=== PATIENT | male | born 1945 | race Caucasian/White ===

== ENCOUNTER 2017-07-18 07:50 | Outpatient (CLI) | payer OTHER ==
[~2017-07-18 07:50] MED LIST: HYDRALAZINE HCL10 MG; LOSARTAN-HCTZ1 EAC1; NORVASC10 MG; OMEPRAZOLE20 M1; TAMS0.4C; TOBRADEX EYE DR10 ML OP; TOPROL XL50 M1; ZITHROMAX500 MG PO
== END 2017-07-18 08:01 | disposition home or self-care (01) ==
LOC: LAB 07:50
DX: R31.9 Hematuria, unspecified (principal); N40.1 Benign prostatic hyperplasia with lower urinary tract symptoms; N30.00 Acute cystitis without hematuria

== ENCOUNTER 2017-07-27 09:32 | Outpatient (CLI) | payer OTHER | END 2017-07-27 14:40 | disposition home or self-care (01) | LOC: RAD 09:32 | DX: S93.602A Unspecified sprain of left foot, initial encounter (principal) ==

== ENCOUNTER → 2017-11-20 09:32 | Outpatient (CLI) | payer OTHER | END | disposition home or self-care (01) | LOC: LAB 09:32 | DX: I10 Essential (primary) hypertension (principal); E78.2 Mixed hyperlipidemia; E03.8 Other specified hypothyroidism ==

== ENCOUNTER 2018-02-10 16:41 | Inpatient (IN) | payer OTHER ==
[~2018-02-10] VITALS: Ht 157.5 cm; Wt 76.7 kg
[2018-02-10] MEDS ORDERED: PROSCAR5 MG (17:04)
[2018-02-10] MEDS ORDERED: ISOSORBIDE DINI30 MG (17:05)
[2018-02-10] MEDS ORDERED: CARDURA XL4 MG (17:05)
== END 2018-02-14 08:31 | disposition home or self-care (01) | DRG 292 ==
LOC: ER 16:41 → MEDJ 02-11 10:21
PROC: B246ZZZ Ultrasonography of Right and Left Heart (ICD-10-PCS; principal; 2018-02-11)
DX: I11.0 Hypertensive heart disease with heart failure (principal); I50.33 Acute on chronic diastolic (congestive) heart failure; I16.9 Hypertensive crisis, unspecified; N39.0 Urinary tract infection, site not specified; N40.0 Benign prostatic hyperplasia without lower urinary tract symptoms; I34.0 Nonrheumatic mitral (valve) insufficiency

== ENCOUNTER 2018-04-14 09:38 | Outpatient (CLI) | payer OTHER ==
[~2018-04-14 09:38] MED LIST changes: +CARDURA XL4 MG; +ISOSORBIDE DINI30 MG; +PROSCAR5 MG
== END 2018-04-14 09:44 | disposition home or self-care (01) ==
LOC: LAB 09:38
DX: C85.84 Other specified types of non-Hodgkin lymphoma, lymph nodes of axilla and upper limb (principal); C82.51 Diffuse follicle center lymphoma, lymph nodes of head, face, and neck; D51.3 Other dietary vitamin B12 deficiency anemia; N40.1 Benign prostatic hyperplasia with lower urinary tract symptoms; I20.0 Unstable angina; E55.9 Vitamin D deficiency, unspecified; E03.8 Other specified hypothyroidism; I10 Essential (primary) hypertension; E78.4 Other hyperlipidemia; I11.0 Hypertensive heart disease with heart failure; D50.8 Other iron deficiency anemias; D51.8 Other vitamin B12 deficiency anemias; K90.89 Other intestinal malabsorption; R97.0 Elevated carcinoembryonic antigen [CEA]; R97.8 Other abnormal tumor markers; K59.09 Other constipation; K29.60 Other gastritis without bleeding

== ENCOUNTER 2018-09-10 10:51 | Outpatient (CLI) | payer OTHER | END 2018-09-10 13:25 | disposition home or self-care (01) | LOC: LAB 10:51 | DX: E11.9 Type 2 diabetes mellitus without complications (principal); I10 Essential (primary) hypertension; E03.8 Other specified hypothyroidism; E78.2 Mixed hyperlipidemia; N40.0 Benign prostatic hyperplasia without lower urinary tract symptoms; M81.0 Age-related osteoporosis without current pathological fracture ==

== ENCOUNTER 2019-01-18 11:18 | Inpatient (IN) | payer OTHER ==
[~2019-01-18] VITALS: Ht 157.5 cm; Wt 76.7 kg
[2019-01-18] MEDS ORDERED: FUROSEMIDE40 MG (11:28)
== END 2019-01-24 10:44 | disposition home or self-care (01) | DRG 291 ==
LOC: ER 11:18 → SURH 01-19 08:45
PROVIDERS: ADMIT Internal Medicine Cardiovascular Disease
PROC: 4A12X4Z Monitoring of Cardiac Electrical Activity, External Approach (ICD-10-PCS; principal; 2019-01-19)
PROC: B246ZZZ Ultrasonography of Right and Left Heart (ICD-10-PCS; 2019-01-19)
PROC: BT43ZZZ Ultrasonography of Bilateral Kidneys (ICD-10-PCS; 2019-01-20)
DX: I13.0 Hypertensive heart and chronic kidney disease with heart failure and stage 1 through stage 4 chronic kidney disease, or unspecified chronic kidney disease (principal); I50.23 Acute on chronic systolic (congestive) heart failure; N17.8 Other acute kidney failure; N39.0 Urinary tract infection, site not specified; I48.0 Paroxysmal atrial fibrillation; N18.9 Chronic kidney disease, unspecified; N40.1 Benign prostatic hyperplasia with lower urinary tract symptoms; R33.8 Other retention of urine; I35.1 Nonrheumatic aortic (valve) insufficiency; I34.0 Nonrheumatic mitral (valve) insufficiency; R60.0 Localized edema

== ENCOUNTER 2019-03-04 10:46 | Emergency (ER) | payer OTHER ==
[~2019-03-04] VITALS: Ht 152.4 cm; Wt 76.2 kg
[~2019-03-04 10:46] MED LIST changes: +FUROSEMIDE40 MG
== END 2019-03-04 12:16 | disposition home or self-care (01) ==
LOC: ER 10:46
DX: N48.89 Other specified disorders of penis (principal); R06.02 Shortness of breath

== ENCOUNTER 2019-03-11 11:13 | Inpatient (IN) | payer OTHER ==
[~2019-03-11] VITALS: Ht 157.5 cm; Wt 77.1 kg
== END 2019-03-20 09:36 | disposition home or self-care (01) | DRG 690 ==
LOC: ER 11:13 → MEDJ 03-12 06:31
PROVIDERS: ADMIT Internal Medicine Cardiovascular Disease
PROC: 4A12X4Z Monitoring of Cardiac Electrical Activity, External Approach (ICD-10-PCS; principal; 2019-03-12)
PROC: 3E0F7GC Introduction of Other Therapeutic Substance into Respiratory Tract, Via Natural or Artificial Opening (ICD-10-PCS; 2019-03-12)
DX: N39.0 Urinary tract infection, site not specified (principal); L03.116 Cellulitis of left lower limb; N17.8 Other acute kidney failure; N40.1 Benign prostatic hyperplasia with lower urinary tract symptoms; I11.0 Hypertensive heart disease with heart failure; R33.8 Other retention of urine; I48.2 Chronic atrial fibrillation; I50.9 Heart failure, unspecified; B96.5 Pseudomonas (aeruginosa) (mallei) (pseudomallei) as the cause of diseases classified elsewhere; B96.1 Klebsiella pneumoniae [K. pneumoniae] as the cause of diseases classified elsewhere; N48.89 Other specified disorders of penis

== ENCOUNTER 2019-04-08 08:42 | Inpatient (IN) | payer OTHER ==
[~2019-04-08] VITALS: Ht 157.5 cm; Wt 68.0 kg
--- NOTE | 2019-04-08 09:12 | NUR ---
SE RECIBE PTE ALERTA Y ORIENTADO X3,ES REFERIDO POR EL ES REFERIDO POR EL POR TAQUICARDIA,PTE REFIERE DOLOR EN LA RUDOLPH
--- NOTE | 2019-04-08 09:32 | NUR ---
SE RECIBE MASCULINO DE 73 ANOS, EN UNIDAD DE CHEST PAIN. PACIENTE ALERTA,ORIENTADO EN EFFIE ADILENE ESFERAS,EN COMPANIA DE FAMILIAR. ES UBICADO EN GLEN #17,CONECTADO A MONITOR CARDIACO, OXIMETRIA DE PULSO CONTINUA. SE OBSERVA CON BUEN PATRON RESPIRATORIO. SE MANTIENE BAJO OBSERVACION.
--- NOTE | 2019-04-08 10:52 | NUR ---
EVALUADO POR QUIEN ORDENA TRATAMIENTO MEDICO DEL CUAL SE ORIENTA PACIENTE Y FAMILIAR,AMBOS REFIEREN COMPRENDER. SE COLECTAN MUESTRAS DE LABORATORIOS LAS CUALES SON ROTULADAS Y ENVIADAS PARA ANALISIS. SE ADMINISTRAN MEDICAMENTOS PAULINA ORDEN MEDICA SIGUIENDO MEDIDAS ASEPTICAS. PACIENTE NO PRESENTA REACCION ADVERSA. SE MANTIENE BAJO OBSERVACION POR CAMBIOS EN CONDICION.
--- NOTE | 2019-04-08 11:50 | NUR ---
PT CON HR 131 A 142LPM SE LE TITULA DRIP DE CARDIZEM 100MG/100ML BAJANDO A 10ML/HR Y SE COMEINZA 0.9NSS 1000ML BAJANDO A 80ML/HR. PT CON WHIPPLE LEGABG DE DOZIER HOGAR, BOLSA DE LEGBAG SE OBSERVA AMARILLA, ORINA SE OBSERVA COLOR AMARILLO TURBIO CON SEDIMENTACION Y PURULENCIA. SE NOTIFICA A MARCIN RENTA Y SE LE COLECTA MUESTRA DE UA Y UC, Y SE LE REALIZA CAMBIO A BOLSA. PT TOLERA PROCEDIMIENTO, SE MANTIENE EN OBSERVACION POR CAMBIOS.
--- NOTE | 2019-04-08 13:34 | NUR ---
SE PROVEE CAMBIO DE PANAL A PT POR EVACUACION. SE LE REALIZA CAMBIO DE BOLSA DE LEG BAG POR BOLSA DE SOLE PARA MAYOR COMODIDAD DE PTE.
--- NOTE | 2019-04-08 13:41 | NUR ---
PT SE MANTIENE CON PULSO VARIABLE ENTRE 110 A 127 LPM, SE OBSERVA FIBRILACION ATRIAL. SE NOTIFICA A DR PRADHAN QUIEN REFIERE MANTENER DRIP DE CARDIZEM A 10ML/HR Y ESPERAR EVALUACION DE DR AIDAN Y NEFROLOGIA. SE MANTIENE A PTE EN OBSERVACION POR CAMBIOS.
--- NOTE | 2019-04-08 14:12 | NUR ---
PT EVALUADO POR DR STEPHAN DUVAL, NEFROLOGO.
--- NOTE | 2019-04-08 15:12 | NUR ---
SE PROVEE CAMBIO DE PANAL POR EVACUACION, PT CON DIARREA (X2 ). SE LE COLECTA FECAL LEUCOCYTES.
--- NOTE | 2019-04-08 15:30 | NUR ---
SE RECIBE PACIENTE ALERTA Y ORIENTADO EN EFFIE ADILENE ESFERAS, PRESENTANDO BUEN PATRON RESPIRATORIO Y GAYLE DE DOLOR. CANALIZADO EN BRAZO RT PATENTE Y GAYLE DE S/S DE FLEBITIS E INFILTRACION, RECIBIENDO 0.9% NSS A 80 ML/HR Y DRIP DE CARDIZEM 100 MG/100 ML A 10 ML/HR. AMBOS IVF'S REGULADOS POR IVPUMP. PACIENTE CONECTADO A MONITOR CARDIACO PRESENTANDO FIBRILACION ATRIAL, RECIBIENDO OXIGENO POR CANULA NASAL A 3 LT. PENDIENTE EVALUACION MEDICA POR UROLOGO DR MCKINNON E INTERNISTA DR BERMUDEZ. NEFROLOGO, DR DUVAL, YA REALIZO EVALUACION DEL PACIENTE.
--- NOTE | 2019-04-08 16:05 | NUR ---
MONITOR CARDIACO PRESENTANDO RUN DE VTAC. PACIENTE ALERTA Y ORIENTADO EN EFFIE ADILENE ESFERAS, NO REFIERE DOLOR EN EL PECHO NI DIFICULTAD RESPIRATORIA. SE AUMENTA VELOCIDAD DE INFUSION DE DRIP DE CARDIZEM A 15 ML/HR.
--- NOTE | 2019-04-08 17:00 | NUR ---
PACIENTE ALERTA Y ORIENTADO EN EFFIE ADILENE ESFERAS, PRESENTA BUEN PATRON RESPIRATORIO Y GAYLE DE DOLOR. RECIBIENDO DRIP DE CARDIZEM A 15 ML/HR Y 0.9% NSS A 80 ML/HR. NO PERALTA VUELTO A PRESENTAR RUN DE VTAC, MONITOR CARDIACO PRESENTA AFIB. CONTINUA BAJO OBSERVACION POR CAMBIOS SIGNIFICATIVOS Y EN ESPERA DE DR BERMUDEZ Y DR MCKINNON.
--- NOTE | 2019-04-08 19:15 | NUR ---
SE NOTIFICA A DR ESTRELLA TOLLIVER LOS RUN DE VTAC QUE PACIENTE PRESENTO, DR ESTRELLA GUTIERREZS ORDENA CONTINUAR CON CARDIZEM A 15 ML/HR Y SI PACIENTE PRESENTA OTRO RUN DE VTAC NOTIFICARLE.
== END 2019-05-03 10:17 | disposition home or self-care (01) | DRG 683 ==
LOC: ER 08:42 → ICU 18:40 → ICU-2 18:40 → ICU 04-09 18:51 → SURG 04-20 03:15 → MEDJ 04-22 19:08
PROVIDERS: ADMIT Internal Medicine Cardiovascular Disease
PROC: BW21ZZZ Computerized Tomography (CT Scan) of Abdomen and Pelvis (ICD-10-PCS; principal; 2019-04-08)
PROC: 02HV33Z Insertion of Infusion Device into Superior Vena Cava, Percutaneous Approach (ICD-10-PCS; 2019-04-10)
PROC: B54PZZZ Ultrasonography of Bilateral Upper Extremity Veins (ICD-10-PCS; 2019-04-15)
PROC: BT4JZZZ Ultrasonography of Kidneys and Bladder (ICD-10-PCS; 2019-04-17)
PROC: 8E0ZXY6 Isolation (ICD-10-PCS; 2019-04-19)
PROC: 4A12X4Z Monitoring of Cardiac Electrical Activity, External Approach (ICD-10-PCS; 2019-04-20)
PROC: BW40ZZZ Ultrasonography of Abdomen (ICD-10-PCS; 2019-04-24)
DX: N17.8 Other acute kidney failure (principal); I13.0 Hypertensive heart and chronic kidney disease with heart failure and stage 1 through stage 4 chronic kidney disease, or unspecified chronic kidney disease; R18.8 Other ascites; J90 Pleural effusion, not elsewhere classified; I50.32 Chronic diastolic (congestive) heart failure; N39.0 Urinary tract infection, site not specified; M62.81 Muscle weakness (generalized); N40.1 Benign prostatic hyperplasia with lower urinary tract symptoms; N18.3 Chronic kidney disease, stage 3 (moderate); R33.8 Other retention of urine; R31.0 Gross hematuria; K57.30 Diverticulosis of large intestine without perforation or abscess without bleeding; B96.5 Pseudomonas (aeruginosa) (mallei) (pseudomallei) as the cause of diseases classified elsewhere; E86.0 Dehydration; E87.8 Other disorders of electrolyte and fluid balance, not elsewhere classified; E88.09 Other disorders of plasma-protein metabolism, not elsewhere classified; I08.0 Rheumatic disorders of both mitral and aortic valves; I87.2 Venous insufficiency (chronic) (peripheral); I48.0 Paroxysmal atrial fibrillation; Z79.01 Long term (current) use of anticoagulants

== ENCOUNTER 2019-06-30 20:09 | Inpatient (IN) | payer OTHER ==
[~2019-06-30] VITALS: Ht 167.6 cm; Wt 70.8 kg
== END 2019-07-17 10:21 | disposition home or self-care (01) | DRG 682 ==
LOC: ER 20:09 → ICU-2 07-01 09:49 → ICU 07-03 20:47 → MEDJ 07-13 14:10
PROVIDERS: ADMIT Internal Medicine Cardiovascular Disease
PROC: BW40ZZZ Ultrasonography of Abdomen (ICD-10-PCS; 2019-07-01)
PROC: 4A033R1 Measurement of Arterial Saturation, Peripheral, Percutaneous Approach (ICD-10-PCS; 2019-07-01)
PROC: 0T9B70Z Drainage of Bladder with Drainage Device, Via Natural or Artificial Opening (ICD-10-PCS; 2019-07-01)
PROC: 5A09457 Assistance with Respiratory Ventilation, 24-96 Consecutive Hours, Continuous Positive Airway Pressure (ICD-10-PCS; 2019-07-02)
PROC: 3E0F7GC Introduction of Other Therapeutic Substance into Respiratory Tract, Via Natural or Artificial Opening (ICD-10-PCS; 2019-07-02)
PROC: 4A12X4Z Monitoring of Cardiac Electrical Activity, External Approach (ICD-10-PCS; 2019-07-02)
PROC: BW21ZZZ Computerized Tomography (CT Scan) of Abdomen and Pelvis (ICD-10-PCS; principal; 2019-07-04)
PROC: 02HV33Z Insertion of Infusion Device into Superior Vena Cava, Percutaneous Approach (ICD-10-PCS; 2019-07-04)
PROC: 8E0ZXY6 Isolation (ICD-10-PCS; 2019-07-09)
DX: N17.8 Other acute kidney failure (principal); R65.21 Severe sepsis with septic shock; A41.89 Other specified sepsis; I50.23 Acute on chronic systolic (congestive) heart failure; B37.1 Pulmonary candidiasis; J10.08 Influenza due to other identified influenza virus with other specified pneumonia; N39.0 Urinary tract infection, site not specified; I13.0 Hypertensive heart and chronic kidney disease with heart failure and stage 1 through stage 4 chronic kidney disease, or unspecified chronic kidney disease; R18.8 Other ascites; J90 Pleural effusion, not elsewhere classified; J98.11 Atelectasis; I31.3 Pericardial effusion (noninflammatory); N13.8 Other obstructive and reflux uropathy; B37.0 Candidal stomatitis; I48.0 Paroxysmal atrial fibrillation; I08.3 Combined rheumatic disorders of mitral, aortic and tricuspid valves; E87.6 Hypokalemia; I70.0 Atherosclerosis of aorta; C76.0 Malignant neoplasm of head, face and neck; B96.4 Proteus (mirabilis) (morganii) as the cause of diseases classified elsewhere; B96.1 Klebsiella pneumoniae [K. pneumoniae] as the cause of diseases classified elsewhere; N13.39 Other hydronephrosis; N18.3 Chronic kidney disease, stage 3 (moderate); R31.0 Gross hematuria; Z45.1 Encounter for adjustment and management of infusion pump; Z79.01 Long term (current) use of anticoagulants

== ENCOUNTER 2020-02-25 14:32 | Inpatient (IN) | payer OTHER ==
[~2020-02-25] VITALS: Ht 157.5 cm; Wt 68.0 kg
[2020-02-25] MEDS ORDERED: AMIODARONE HCL100 MG (14:55)
[2020-02-25] MEDS ORDERED: ELIQUIS2.5 MG (14:55)
[2020-02-25] MEDS ORDERED: ZYLOPRIM100 M1 (14:55)
[2020-02-25] MEDS ORDERED: KAPVAY0.1 MG (14:55)
[2020-02-25] MEDS ORDERED: LEVO-T50 MCG (14:55)
[2020-02-25] MEDS ORDERED: PEPCID AC20 MG (14:55)
[2020-02-25] MEDS ORDERED: ALDACTONE25 MG (14:56)
[2020-02-25] MEDS ORDERED: CARVEDILOL6.25 MG (14:56)
--- NOTE | 2020-02-25 14:56 | NUR ---
PACIENTE ALERTA E HIPOACTIVO EN AMBULANCIA, PARAMEDICOS VERBALIZAN PACIENTE LLEGA A ER POR DEBILIDAD, EDEMA EN EFFIE CUATRO EXTREMIDADES Y DOLOR DE PRAMOD.
--- NOTE | 2020-02-25 15:30 | NUR ---
SE RECIBE PTE EL CUAL LLEGA EN AMBULANCIA, HIPOACTIVO, RESPONDE A ESTIMULO TACTIL, EL MISMO UBICADO EN CAMA #1 DEL AREA DE CRITICO. SE OBSERVA EDEMA EN AMBOS BRAZOS Y PIERNAS, CON ABRASIONES EN EXTREMIDADES SUPERIORES E INFERIORES. PTE SE UBICA EN CAMA #1 DEL AREA DE CRITICO, SE CONECTA A MONITOR CARDIACO Y OXIMETRIA DE PULSO, AL MOMENTO SATURANDO 70%, PENDIENTE A REALIZAR ABG'S YA NOTIFICADOS. SE REALIZA EKG, SE PRESENTA A LA MARCIN JOSE. PTE CANALIZADO POR MS Dex DEMETRI Y MR Jaquan CHELSEA EN MANO Y ANTEBRAZO RT #20 Y #18 AMBOS PATANTES Y LIBRES DE EDEMA O ERITEMA. SE INTENTA COLOCAR WHIPPLE EN NMULTIPLES OCASIONES SIN EXITO, SE NOTIFICA A LA MARCIN GARCIA. PENDIENTE A REALIZAR CT CHEST. SE MANTIENE BAJO OBSERVACION.
--- NOTE | 2020-02-25 17:28 | NUR ---
SE RECIBE PT LETARGICO, PUPILAS NO REACCIONAN A LA DAINA. ASISTENCIA RESPIRATORIA POR VENTURY MASK. PT SOLO RESPONDE A ESTIMULO DE DOLOR. CONECTADO A MONITOR CARDIACO Y SATUROMETRO DE PULSO. ABDDOMEN BLANDO. SE INTENTA REALIZAR INSERCION DE WHIPPLE CON TECNICAS ASEPTICAS Y ESTERILES, SIN EXITO. MR CM LYLE ASISTE EN UN HANSEL INTENTO, SIN EXITO. ESPOSA DE PT REFIERE PT BAJO TRATAMIENTO CON DR ADRIEL MCKINNON QUIEN ES EL QUE REALIZA EL PROCEDIMIENTO DE INSERCION DE WHIPPLE SE NOTIFICA A DR BARRERA EN BRISEYDA DE EMERGENCIAS QUIEN ORDENA DEJAR EN OBSERVACION A PT CONTINUACION DE TRATAMIENTO. EXTREMIDADES INFERIORES CON EDEMA NIVEL 2, SE OBSERVAN ALGUNAS ULCERAS EN AMBAS PIERNAS Y ERITEMA DESDE EL HENRI HASTA LA RODILLA, EN AMBAS PIERNAS. EXTREMIDADES SUPERIORES CON EDEMA NIVEL 2. HEPARIN LOCK EN MANO DERECHA CON ANGIO 20 PATENTE GAYLE DE EDEMA Y/O ERITEMA. HEPARIN LOCK EN MANO DERECHA CON ANGIO 18 PATENTE GAYLE DE EDEMA Y/O ERITEMA. SE MANTIENE BAJO CONTINUA OBSERVACION. ESPOSA FIRMA DIRECTRICES AVANZADAS PARA UN DNR. 500PM- PT PRESENTA BP 176/121 [address]MMHG, SE [address] MIRZA QUIEN ORDENA LASIX 20MG IV PUSH. 530PM- PT PRESENTA INREGULARIDAD EN SATURACION DE PULSO Y RITMO RESPIRATORIO, PRESENTA PERIODOS DE APNEA, SE NOTIFICA A DR MIRZA.
== END 2020-03-08 14:51 | disposition home or self-care (01) | DRG 872 ==
LOC: ER 14:32 → SEC-K 18:11 → MEDI 18:11
PROVIDERS: ADMIT Internal Medicine Cardiovascular Disease; ATTEND Internal Medicine Cardiovascular Disease
PROC: 4A033R1 Measurement of Arterial Saturation, Peripheral, Percutaneous Approach (ICD-10-PCS; principal; 2020-02-25)
PROC: 3E0F7GC Introduction of Other Therapeutic Substance into Respiratory Tract, Via Natural or Artificial Opening (ICD-10-PCS; 2020-02-25)
PROC: 5A09557 Assistance with Respiratory Ventilation, Greater than 96 Consecutive Hours, Continuous Positive Airway Pressure (ICD-10-PCS; 2020-02-25)
PROC: 4A12X4Z Monitoring of Cardiac Electrical Activity, External Approach (ICD-10-PCS; 2020-02-26)
PROC: 05HY33Z Insertion of Infusion Device into Upper Vein, Percutaneous Approach (ICD-10-PCS; 2020-02-27)
DX: A41.9 Sepsis, unspecified organism (principal); N39.0 Urinary tract infection, site not specified; I13.0 Hypertensive heart and chronic kidney disease with heart failure and stage 1 through stage 4 chronic kidney disease, or unspecified chronic kidney disease; N13.8 Other obstructive and reflux uropathy; N17.9 Acute kidney failure, unspecified; E87.2 Acidosis; L97.829 Non-pressure chronic ulcer of other part of left lower leg with unspecified severity; N18.2 Chronic kidney disease, stage 2 (mild); I50.9 Heart failure, unspecified; I48.0 Paroxysmal atrial fibrillation; B96.5 Pseudomonas (aeruginosa) (mallei) (pseudomallei) as the cause of diseases classified elsewhere; R33.8 Other retention of urine; N40.1 Benign prostatic hyperplasia with lower urinary tract symptoms; Z99.81 Dependence on supplemental oxygen; R09.02 Hypoxemia; N35.919 Unspecified urethral stricture, male, unspecified site; E03.8 Other specified hypothyroidism; I34.0 Nonrheumatic mitral (valve) insufficiency; I35.1 Nonrheumatic aortic (valve) insufficiency; Z20.828 Contact with and (suspected) exposure to other viral communicable diseases; B95.61 Methicillin susceptible Staphylococcus aureus infection as the cause of diseases classified elsewhere